=== PATIENT | female | born 1950 | race Caucasian/White ===

== ENCOUNTER 2021-12-19 09:55 | Emergency (ER) | payer MEDICARE, BC ==
[2021-12-19] MEDS ORDERED: Morphine 4 MG/ML Syringe IVPUSH PRN (10:25)
[2021-12-19] MEDS ORDERED: Nitroglycerin 0.4 MG Tab.SL SL PRN (10:31)
[2021-12-19 11:24] LABS: ESTIMATED GFR 68 mL/min (>60)
[2021-12-19] MEDS ORDERED: Ketorolac 30 MG/ML SDV IVPUSH ONE (11:52)
== END 2021-12-19 14:40 | disposition home or self-care (01) ==
LOC: JP.ED 09:55
DX: R07.89 Other chest pain (principal); Z79.82 Long term (current) use of aspirin; Z79.899 Other long term (current) drug therapy
CPT/HCPCS: 36415; 71045; 71045-26; 80053; 83605; 84484; 85025; 85379; 93005; 96374; 99284-25; A9270-GY; J1885